=== PATIENT | female | born 2000 | race Caucasian/White ===

== ENCOUNTER → 2023-09-04 | Outpatient (CLI) | payer OTHER ==
[2023-09-04 21:20] VITALS: BP 131/67; PULSE 103; RESP 17; TEMP 98.1
--- NOTE | 2023-09-15 11:03 | P.MSEPDOC ---
Presenting Problems - Arrival Data Date of Arrival on Unit: 09/04/23 Time of Arrival on Unit: 19:50 Mode of Transport: Ambulatory - Complaint OB-Reason for Admission/Chief Complaint: Rule Out PROM Medical History - Information : 1 Para: 0 Term: 0 : 0 Abortions: Spontaneous or Elective: 0 Number of Living Children: 0 - Gestational Age Gestational Age by YEN (wks/days): 32 Weeks and 2 Days Review of Systems - Review of Systems Constitutional: No problems Breast: No problems ENT: No problems Cardiovascular: No problems Respiratory: No problems Gastrointestinal: No problems Genitourinary: No problems Musculoskeletal: No problems Neurological: No problems Skin: No problems Vital Signs - Temperature Temperature: 98.1 F Temperature Source: Temporal Artery Scan - Pulse Right Pulse Rate: 103 Pulse Assessment Method: Pulse Oximetry - Respirations Respiratory Rate: 17 Oxygen Delivery Method: Room Air O2 Sat by Pulse Oximetry: 98 - Blood Pressure Right Arm Blood Pressure: 131/67 Blood Pressure Mean: 88 Blood Pressure Source: Automatic Cuff Medical Screen Scoring - Cervical Exam Dilation (cm): 0 Effacement (%): 0 Membranes: Intact - Assessment - Baby A Baseline FHR: 145 Heart Rate - NICHD Category: Category I (Normal) NST: Reactive Physician Notification - Physician Notified Physician Notified Date: 09/04/23 Physician Notified Time: 20:42 Physician: Amado Zaman New Order Received: Yes - Notification Comment Comment: Amnisure negative, Cat I fht, no ctx noted by pt or toco, cervical exam cl/thick. orders for d/c to home Maternal Triage Index - Maternal Triage Index Presenting for scheduled procedure w/no complaint: No - Stat/Priority 1 Stat Priority 1: No - Urgent/Priority 2 Urgent Priority 2: Yes Provider Notified: Amado aZman Provider Notified Time: 20:42 Criteria Met for Priority 2: C/o ROM at 32 2/7 wga Disposition - Disposition OB Disposition: Discharge to home Discharge Date: 09/04/23 Discharge Time: 20:49 I agree with the RN Medical Screening Exam: Yes Physician's MSE Comment: I have neither seen nor examined the patient. Case reviewed; plan agreed upon as documented in EMR&OBIX.: Yes Diagnosis: RELATED CONDITIONS, UNSPECIFIED, THIRD TRIMESTER
== END ==
LOC: FBPOP 19:50
PROVIDERS: ATTEND Obstetrics & Gynecology
DX: O47.03 False labor before 37 completed weeks of gestation, third trimester (principal); Z3A.32 32 weeks gestation of pregnancy
CPT/HCPCS: 59025; 84112; G0463; 99213

== ENCOUNTER 2023-11-13 03:33 | Inpatient (IN) | payer OTHER ==
[2023-11-13] MEDS ORDERED: miSOPROStoL 200 MCG TAB PO PRN (03:49)
[2023-11-13] MEDS ORDERED: TERBUTALINE 1 MG/ML VIAL SQ PRN (03:49)
[2023-11-13] MEDS ORDERED: OXYTOCIN 10 UNIT/ML 1 ML VIAL IM PRN (03:49)
[2023-11-13] MEDS ORDERED: TRANEXAMIC 1,000 MG/100ML-NACL 1,000 MG in EMPTY BAG 1 BAG IV PRN (03:49)
[2023-11-13] MEDS ORDERED: CARBOPROST TROMETHAMINE 250 MCG/ML 1 ML AMP IM PRN (03:49)
[2023-11-13] MEDS ORDERED: METHYLERGONOVINE 0.2 MG/ML 1 ML AMP IM PRN (03:49)
[2023-11-13] MEDS: LACTATED RINGERS 1,000 ML IV SCH (03:50)
[2023-11-13 04:21] LABS: Basophils # (A) 0.1 k/uL (0-0.2); Basophils % (A) 0 %; Eosinophils % (A) 0 %; HCT 34.4 % (34.0-46.0); HGB 11.4 gm/dL (11.4-16.0); Lymphocytes # (A) 3.1 k/uL (1.0-4.8); Lymphocytes % (A) 22 %; MCH 26.7 pg (25.0-35.0); MCHC 33.1 g/dL (31.0-37.0); MCV 80.5 fL (80.0-100.0); Mean Platelet Volume 8.7; Monocytes # (A) 0.4 k/uL (0-1.0); Monocytes % (A) 3 %; Neutrophils # (A) 10.3 k/uL (1.3-7.7); Neutrophils % (A) 73 %; Platelet Count 253 k/uL (150-450); RBC 4.28 m/uL (3.80-5.40); RDW 14.5 % (11.5-15.5); WBC 14.2 k/uL (3.8-10.6)
[2023-11-13 04:48] LABS: Appearance,Urine Cloudy (Clear); Bilirubin,Urine Negative (Negative); Blood,Urine Negative (Negative); Color,Urine Colorless; Glucose,Urine (UA) Negative (Negative); Ketones,Urine Negative (Negative); Leukocyte Esterase,Urine Negative (Negative); Nitrite,Urine Negative (Negative); PH, Urine 6.5 (5.0-8.0); Protein,Urine Negative (Negative); RBC,Urine 1 /hpf (0-5); Specific Gravity,Urine 1.013 (1.001-1.035); Squamous Epithelial Cell,Urine 3 /hpf (0-4); Urobilinogen,Urine <2.0 mg/dL (<2.0); WBC,Urine 2 /hpf (0-5)
[2023-11-13 04:52] LABS: Creatinine,Urine Random 88.4 mg/dL; Protein/Creatinine Ratio,Urine 0.09
[2023-11-13] MEDS: OXYTOCIN 30 UNITS/500 ML NS 30 UNIT in SALINE 1 500ML.BAG IV SCH (05:55)
[2023-11-13 06:21] LABS: ALT 11 U/L (4-34); AST 21 U/L (14-36); African American GFR (CKD) >90 (>60 ml/min/1.73 sqM); Blood Urea Nitrogen 7 mg/dL (7-17); LDH 143 U/L (120-246); Non-African American GFR(CKD) >90 (>60 ml/min/1.73 sqM); Uric Acid 4.6 mg/dL (3.7-7.4)
--- NOTE | 2023-11-13 08:32 | P.HPOB ---
History of Present Illness H&P Date: 11/13/23 Chief Complaint: Scheduled induction of labor, post-dates Ms. Mccall is a 23 year old at 40 weeks and 6 days with EDC of 11/06/2023 by LMP consistent with 9 week US who presents to L&D for induction of labor for post-dates . The patient arrived a few hours prior to her scheduled induction time because she had spontaneous rupture of membranes at 2200 on 11/12/2023 revealing clear amniotic fluid. The patient had low-grade temperatures of 99.5 overnight and this morning has a temperature of 100.3. The has been uncomplicated. The fetus measured in the 81%ile at 34 week growth ultrasound. Upon admission, the patient had elevated blood pressures. PIH work- up was started with normal labs and urine P:C ratio of 0.9. The patient denies headache, visual disturbances, and right upper quadrant pain. work-up: blood type B positive, antibody screen negative, rubella non- immune, VDRL non-reactive, HbsAg negative, HIV negative, gonorrhea negative, chlamydia negative, 1 hour GTT within normal limits, GBS negative. Past Medical History Past Medical History: No Reported History History of Any Multi-Drug Resistant Organisms: None Reported Past Surgical History: No Surgical Hx Reported Past Anesthesia/Blood Transfusion Reactions: No Reported Reaction Past Psychological History: No Psychological Hx Reported Smoking Status: Former smoker, Never smoker Past Alcohol Use History: None Reported Past Drug Use History: None Reported Medications and Allergies Home Medications Medication Instructions Recorded Confirmed Type Pediatric Multivit No.203/Iron 18 mg PO DAILY 09/04/23 09/04/23 History [Flintstones with Iron Tab Chew] Allergies Allergy/AdvReac Type Severity Reaction Status Date / Time No Known Allergies Allergy Verified 11/13/23 03:48 Exam Vital Signs Temp Pulse Resp BP Pulse Ox 11/13/23 03:50 98.5 F 120 H 15 141/86 98 Intake and Output 11/12/23 11/13/23 11/13/23 22:59 06:59 14:59 Other: # Voids 1 Weight 89.358 kg Focused physical exam is performed. This is a healthy-appearing in no apparent distress. Breathing is non-labored. Abdomen is gravid and non-tender. Cervical exam is 4.5 cm, 90% effacement, -2 station. AROM of forebag is undertaken with clear fluid noted. Extremeties non-tender and non-edematous. heart tones are Category II with intermittent variables and early decelerations, and tocometer is graphing contractions every 2-4 minutes. Results Result Diagrams: 11/13/23 03:51 11/13/23 04:22 Abnormal Lab Results - Last 24 Hours (Table) 11/13/23 11/13/23 Range/Units 03:51 04:35 WBC 14.2 H (3.8-10.6) k/uL Neutrophils # 10.3 H (1.3-7.7) k/uL Urine Appearance Cloudy H (Clear) Assessment and Plan Assessment: 23 year old at 40 weeks and 6 days presenting for scheduled induction of labor after spontaneous rupture of membranes at home, now with chorioamnionitis and gestational hypertension Plan: Admit, NPO, pitocin per protocol, IV amp/gent for chorioamnionitis, close monitoring of blood pressures, continuous EFM and tocometer, close monitoring of patient. Anticipate vaginal delivery. Time with Patient: Less than 30
[2023-11-13] MEDS: AMPICILLIN 2,000 MG in SODIUM CHLORIDE 0.9% 100 ML IVPB SCH (08:40)
[2023-11-13] MEDS ORDERED: fentaNYL (PF) 50 MCG/ML 5 ML AMP ONE (08:46)
[2023-11-13] MEDS ORDERED: SODIUM CHLORIDE 0.9% 250 ML BAG ONE (08:46)
[2023-11-13] MEDS ORDERED: ROPIVACAINE 5 MG/ML 30 ML VIAL ONE (08:46)
[2023-11-13] MEDS: GENTAMICIN 360 MG in SODIUM CHLORIDE 0.9% 100 ML IVPB SCH (09:13)
--- NOTE | 2023-11-13 11:43 | P.PROBDLV ---
Vaginal Delivery Note - . Vaginal Delivery Note: DATE OF SERVICE: 11/13/2023 PROCEDURE: Normal Vaginal Delivery ATTENDING: Dr. Darya Cerda MD ESTIMATED BLOOD LOSS: 200 mL FINDINGS: VMI, Apgars 9/9. Weight 8 pounds and 6 ounces (98892 grams) PROCEDURE: Ms. Mccall is a 23 year old at 40 weeks and 6 days presenting to labor and delivery for scheduled induction of labor. The patient had spontaneous rupture of membranes the evening prior to induction at 2200 on 11/12/2023. The has been uncomplicated. The patient was also noted to have mildly elevated blood pressures upon arrival. For further details, please review the admitting H&P. Pitocin was started per protocol. A forebag was ruptured at 817 for clear fluid. The patient received epidural anesthesia per her request. The patient was completely dilated at 1037. She pushed effectively with category I heart tones. A viable male infant was delivered at 1111, one nuchal cord was reduced. The was placed on the maternal abdomen and bulb suctioned. The was noted to be spontaneously crying. Cord was clamped and cut after a 30-second delay. The was handed off to the pediatric team. Placenta was delivered whole with gentle cord traction at 1114. Oxytocin was started to facilitate uterine tone. Uterine fundus was found to be firm and below the umbilicus upon fundal massage. Thorough examination of the cervix, vagina, periurethral area, and perineum revealed a right labia majora laceration extending into a first degree right perineal laceration. This was repaired with 3-0 Vicryl in the usual fashion. The patient is stable and allowed to begin the bonding process.
[2023-11-13] MEDS ORDERED: diphenhydrAMINE 50 MG CAP PO PRN (11:44)
[2023-11-13] MEDS ORDERED: LANOLIN CREAM 1 GM TUBE TOPICAL PRN (11:44)
[2023-11-13] MEDS ORDERED: diphenhydrAMINE 25 MG CAP PO PRN (11:44)
[2023-11-13] MEDS ORDERED: SIMETHICONE 80 MG CHEWABLE PO PRN (11:44)
[2023-11-13] MEDS ORDERED: diphenhydrAMINE 50 MG/ML 1 ML VIAL IVP PRN ×2 (11:44)
[2023-11-13] MEDS ORDERED: ZOLPIDEM 5 MG TAB PO PRN (11:44)
[2023-11-13] MEDS ORDERED: ACETAMINOPHEN TAB 325 MG TAB PO PRN (11:44)
[2023-11-13] MEDS ORDERED: BENZOCAINE/MENTHOL SPRAY 1 GM/SPRAY AEROSOL TOPICAL PRN (11:44)
[2023-11-13] MEDS: LIDOCAINE 0.5% (PF) 5 MG/ML (50 ML SDV) SQ PRN (13:34)
[2023-11-13] MEDS: IBUPROFEN 600 MG TAB PO PRN (14:23)
[2023-11-13] MEDS: SENNOSIDES-DOCUSATE SODIUM 1 EACH TAB PO SCH (21:45)
[2023-11-14 06:56] LABS: Basophils % (A) 0 %; Eosinophils % (A) 0 %; HCT 29.2 % (34.0-46.0); Hypochromasia Slight; Lymphocytes # (A) 1.9 k/uL (1.0-4.8); Lymphocytes % (A) 18 %; MCH 27.1 pg (25.0-35.0); MCV 82.1 fL (80.0-100.0); Monocytes # (A) 0.4 k/uL (0-1.0); Monocytes % (A) 3 %; Neutrophils # (A) 8.3 k/uL (1.3-7.7); Neutrophils % (A) 77 %; Platelet Count 183 k/uL (150-450); RBC 3.55 m/uL (3.80-5.40); RDW 14.8 % (11.5-15.5); WBC 10.7 k/uL (3.8-10.6)
[2023-11-14 06:57] LABS: HGB 9.6 gm/dL (11.4-16.0)
[2023-11-14 08:04] VITALS: RESP 16; TEMP 97.8
--- NOTE | 2023-11-14 08:47 | P.PNOBGVD ---
Subjective - Subjective Principal diagnosis: s/p normal vaginal delivery Interval history: The patient is doing well this morning and had no acute events overnight. She has no complaints this morning. She reports minimal lochia, passing flatus, voiding without difficulty, ambulating, and eating/drinking without nausea or vomiting. She is her without difficulty. She denies chest pain, shortness of breathing, fevers, or chills overnight. She denies pain or swelling in the legs. Patient reports: Reports appetite normal, Reports voiding normally, Reports pain well controlled, Reports ambulating normally [place]: doing well Objective - Latest Vital Signs Latest vital signs: Vital Signs Temp Pulse Resp BP Pulse Ox 11/14/23 07:53 97.8 F 77 16 126/87 11/14/23 00:00 98.3 F 93 18 120/71 97 11/13/23 20:00 98.1 F 98 18 112/72 97 11/13/23 16:00 98.7 F 98 16 112/72 11/13/23 13:25 98.8 F 103 H 16 117/64 11/13/23 13:10 101 H 18 116/56 11/13/23 12:55 98.8 F 101 H 16 114/64 11/13/23 12:40 96 16 125/73 11/13/23 12:25 83 16 124/66 11/13/23 12:10 105 H 18 127/61 11/13/23 11:55 85 16 116/60 11/13/23 11:40 107 H 18 119/76 11/13/23 11:25 110 H 16 112/67 Intake and Output 11/13/23 11/14/23 11/14/23 22:59 06:59 14:59 Intake Total 500 200 Balance 500 200 Intake: Oral 500 200 Other: Voiding Method Toilet # Voids 1 1 # Bowel Movements 1 - Exam Extremities: Present: normal Abdomen: Present: normal appearance, soft Uterus: Present: normal, firm - Labs Labs: Abnormal Lab Results - Last 24 Hours (Table) 11/14/23 Range/Units 06:26 WBC 10.7 H (3.8-10.6) k/uL RBC 3.55 L (3.80-5.40) m/uL Hgb 9.6 L D (11.4-16.0) gm/dL Hct 29.2 L (34.0-46.0) % Neutrophils # 8.3 H (1.3-7.7) k/uL Assessment and Plan Assessment: 23 year old now PPD#1 s/p normal vaginal delivery after induction of labor for post-dates Plan: 1. . Patient meeting milestones appropriately. 2. Viable male infant. Doing well at bedside, feeing well. s/p circumcision. Dispo: Anticipate discharge home tomorrow. Pt had chorioamnionitis in labor and blood cultures are pending on the infant. Patient would like to stay admitted if her baby is being kept for an additional day.
[2023-11-14] MEDS: FERROUS SULFATE 325 MG TAB PO SCH (12:54)
[2023-11-14] MEDS: HYDROCORTISONE 2.5% RECTAL CREAM 30 GM TUBE RECTAL PRN (13:39)
--- NOTE | 2023-11-14 16:17 | P.DS ---
Providers Date of admission: 11/13/23 03:33 Expected date of discharge: 11/14/23 Attending physician: Darya Cerda MD Primary care physician: Stated None Hospital Course: Ms. Mccall is a 23 year old now PPD#1 s/p normal vaginal delivery after induction of labor for post-dates . The patient was also noted to have a few elevated blood pressures during her intrapartum course. Her intrapartum course was complicated by chorioamnionitis for which she was treated with IV ampicillin and gentamicin during labor. The patient's course has been unremarkable. She has no complaints today and desires to go home. She is ambulating and voiding without difficulty. Lochia is minimal. She is her infant without difficulty. Her son is status post uncomplicated circumcision. She denies pain/swelling in the legs, chest pain, shortness of breath, and dizzinness with ambulation. restrictions are discussed with the patient including 6 weeks of pelvic rest. The patient is encouraged to call the office for heavy bleeding, fevers, chills, foul-smelling vaginal discharge, or breast concerns. She will follow up in the office in 1 week for blood pressure check and in 6 weeks for appointment. She will take OTC Motrin and Tylenol as needed for pain. All questions answered. Assessment: 23 year old PPD#1 s/p normal vaginal delivery Plan - Discharge Summary New Discharge Prescriptions: No Action Pediatric Multivit No.203/Iron [Flintstones with Iron Tab Chew] 18 mg PO DAILY Discharge Medication List Pediatric Multivit No.203/Iron [Flintstones with Iron Tab Chew] 18 mg PO DAILY 09/04/23 [History] Follow up Appointment(s)/Referral(s): Darya Cerda MD [STAFF PHYSICIAN] - 1 Week (blood pressure check) Discharge Disposition: HOME SELF-CARE
[2023-11-14 16:29] VITALS: BP 128/84; PULSE 88
== END 2023-11-14 23:00 | disposition home or self-care (01) | DRG 560 ==
LOC: 4FBP 03:33
PROVIDERS: ADMIT Obstetrics & Gynecology; ATTEND Obstetrics & Gynecology
PROC: 10E0XZZ Delivery of Products of Conception, External Approach (ICD-10-PCS; principal; 2023-11-13)
PROC: 0HQ9XZZ Repair Perineum Skin, External Approach (ICD-10-PCS; 2023-11-13)
DX: O48.0 Post-term pregnancy (principal); Z37.0 Single live birth; O41.1230 Chorioamnionitis, third trimester, not applicable or unspecified; O13.4 Gestational [pregnancy-induced] hypertension without significant proteinuria, complicating childbirth; O70.0 First degree perineal laceration during delivery; O71.82 Other specified trauma to perineum and vulva; Z87.891 Personal history of nicotine dependence; Z28.310 Unvaccinated for COVID-19; Z3A.40 40 weeks gestation of pregnancy
CPT/HCPCS: 81001; 82565; 82570; 83615; 84156; 84450; 84460; 84520; 84550; 85025; 86850; 86900; 86901